=== PATIENT | male | born 1970 | race Caucasian/White ===

== ENCOUNTER 2017-04-29 23:55 | Inpatient (IN) | payer SELFPAY ==
[~2017-04-29] VITALS: Ht 182.9 cm; Wt 66.5 kg
[~2017-04-29 23:55] MED LIST: VENL75 PO
[2017-04-29 23:57] VITALS: TEMP 98.5
[2017-04-30] VITALS (14 sets, daily range): BP systolic 124–177; BP diastolic 84–109; PULSE 71–142; RESP 15–18; TEMP 97.8–99; O2SAT 94–100
[2017-04-30] MEDS ORDERED: SODIUM CHLOR 0.9% 1000 ML INJ 1,000 ML IV ONE
[2017-04-30] MEDS ORDERED: THIAMINE INJ 100 MG in SODIUM CHLORIDE 0.9% INJ 100 ML IV ONE ×2
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
[2017-04-30 00:29] LABS: AUTOMATED NEUTROPHIL # 1.9 TH/MM3 (1.8-7.7); BASOPHIL # 0.1 TH/MM3 (0-0.2); BASOPHIL % 4.2 % (0.0-2.0); EOSINOPHIL % 0.4 % (0.0-4.0); HEMATOCRIT 40.3 % (39.0-51.0); LYMPH % 11.9 % (9.0-44.0); LYMPHOCYTE # 0.3 TH/MM3 (1.0-4.8); MEAN CELL VOLUME 94.5 FL (80.0-100.0); MEAN CORPUSCULAR HGB CONC 33.9 % (32.0-36.0); MONO % 14.4 % (0.0-8.0); NEUT % 69.1 % (16.0-70.0); PLATELET COUNT 80 TH/MM3 (150-450); RED BLOOD COUNT 4.26 MIL/MM3 (4.50-5.90); RED CELL DISTRIBUTION WIDTH 13.5 % (11.6-17.2); WHITE BLOOD COUNT 2.7 TH/MM3 (4.0-11.0)
[2017-04-30 00:34] LABS: HEMO FLAGS AUTO DIFF
[2017-04-30 00:59] LABS: BICARBONATE 22.3 MEQ/L (21.0-32.0)
[2017-04-30 01:29] LABS: PLATELET ESTIMATE SMEAR LOW (NORMAL); PLATELET MORPHOLOGY NORMAL (NORMAL); SCAN/DIFF AUTO DIFF CONFIRMED
[2017-04-30] MEDS ORDERED: LORazepam 2 MG/ML VIAL IV PUSH ONE ×2 (02:45)
[2017-04-30] MEDS ORDERED: NALOXONE HCL 0.4 MG/ML AMP IV PRN (03:30)
[2017-04-30] MEDS ORDERED: SODIUM CHLORIDE 0.9% FLUSH 10 ML FLUSH IV FLUSH PRN (03:30)
[2017-04-30] MEDS ORDERED: chlordiazePOXIDE 25 MG CAP PO ONE (03:45)
[2017-04-30] MEDS: SODIUM CHLORIDE 0.9% FLUSH 10 ML FLUSH IV FLUSH SCH ×2 (08:52→20:03)
[2017-04-30] MEDS: THIAMINE HCL 100 MG TAB PO SCH (08:52)
[2017-04-30] MEDS: LORazepam 2 MG/ML VIAL IV PUSH PRN ×2 (08:53→22:37)
[2017-04-30] MEDS ORDERED: RESP: ALBUTEROL 2.5 MG/IPRATROPIUM 0.5 MG NEB (SCH) NEB (09:00)
[2017-04-30] MEDS ORDERED: LISINOPRIL 10 MG TAB PO SCH (09:00)
[2017-04-30] MEDS ORDERED: RESP: ALBUTEROL 2.5 MG/IPRATROPIUM 0.5 MG NEB (PRN) NEB (09:00)
[2017-04-30] MEDS ORDERED: cloNIDine HCL 0.1 MG TAB PO PRN (09:00)
[2017-04-30] MEDS: REMOVE OLD PATCH T-DERMAL SCH (09:00)
[2017-04-30] MEDS ORDERED: LORazepam 2 MG TAB PO PRN (09:30)
[2017-04-30] MEDS ORDERED: LORazepam 2 MG/ML VIAL IV PUSH PRN ×2 (09:30)
[2017-04-30] MEDS ORDERED: FLUMAZENIL 0.5 MG/5 ML VIAL IV PUSH PRN (09:30)
[2017-04-30] MEDS: NICOTINE 21 MG/24 HR PATCH T-DERMAL SCH (09:31)
[2017-04-30] MEDS: MULTIVITAMIN TAB PO SCH (09:32)
--- NOTE | 2017-04-30 09:40 | HHI.HP ---
[facility] No Primary Care Physician Admission Diagnosis Alcohol withdrawal, mild to moderate Diagnoses: Chief Complaint: Tremors, alcohol withdrawal Travel History International Travel<30 Days: No Contact w/Intl Traveler <30 Da: No Traveled to Known Affected Are: No History of Present Illness Written by Donte Hernandez, acting as scribe for on 04/30/17 at 09:14. Patient is a 46-year-old male with primary medical history of EtOH abuse, HTN who came in to the hospital for evaluation of tremors "shakes." Pt. states he is having withdrawals that's where the tremor is coming. Reports last drink was April 28 and he usually drinks 16 beers per day. Patient reports shaking has improved because she he was given medications overnight. States that he had alcohol withdrawals before and also had seizure 2 that he remembered from alcohol withdrawals. Patient complains of shortness of breath which is now improved after being given oxygen on nasal cannula. Reports cough, nonproductive, not expectorating anything. Reports diarrhea 2 loose BMs since he was at the hospital. Reports chills. Denies fevers, nausea, vomiting, diarrhea. Denies chest pain, palpitations, headaches, dizziness. Denies dysuria, abdominal pain. Patient states he had a history of hypertension but is unable to afford medication to continue what he was prescribed before. Also reports doesn't have a PCP right now and that he cannot remember what blood pressure medication he was taken. Review of Systems Except as stated in HPI: all other systems reviewed are Neg Past Family Social History Past Medical History HTN EtOH abuse Seizures with EtOH withdrawal Past Surgical History No prior surgeries Reported Medications None Allergies: Coded Allergies: Ibuprofen (Verified Allergy, Severe, 04/30/17) Naprosyn (Verified Allergy, Severe, 04/30/17) Naproxen (Verified Allergy, Severe, 04/30/17) Penicillin (Verified Allergy, Severe, 04/30/17) Active Ordered Medications Current Medications Medications (Trade) Dose Ordered Sig/Hermila Route Start Time Stop Time Status Last Admin (NS Flush) 2 ml UNSCH PRN IV FLUSH 7/6/17 03:30 (NS Flush) 2 ml BID IV FLUSH 04/30/17 09:00 04/30/17 08:52 (Narcan Inj) 0.4 mg UNSCH PRN IV 04/30/17 03:30 (Ativan Inj) 1 mg Q2H PRN IV PUSH 04/30/17 03:30 04/30/17 08:53 (Vitamin B1) 100 mg DAILY PO 04/30/17 09:00 04/30/17 08:52 Family History Denies any family medical history Social History Reports alcohol use 16 beers per day Current day smoker 1 pack per day Denies illicit drug use Physical Exam Vital Signs Vital Signs Date Time Temp Pulse Resp B/P Pulse Ox O2 Delivery O2 Flow Rate FiO2 04/30/17 07:58 97.8 87 15 160/99 95 04/30/17 06:03 96 04/30/17 05:13 97.9 95 18 168/106 94 04/30/17 02:20 88 18 156/91 98 Room Air 04/30/17 00:01 109 18 177/109 98 Nasal Cannula 2 04/30/17 00:01 108 20 93 Room Air 04/30/17 00:01 108 04/29/17 23:57 98.5 Physical Exam GENERAL: This is a well-nourished, well-developed patient, in no apparent distress. SKIN: No rashes, ecchymoses or lesions. Warm and dry. HEAD: Atraumatic. Normocephalic. No temporal or scalp tenderness. EYES: Pupils equal round and reactive. Extraocular motions intact. No scleral icterus. No injection or drainage. ENT: Nose without bleeding. Throat without erythema. Uvula midline. Airway patent. Poor dentition. NECK: Trachea midline. No JVD or lymphadenopathy. Supple, nontender, no meningeal signs. CARDIOVASCULAR: Regular rate and rhythm without murmurs, gallops, or rubs. RESPIRATORY: Expiratory wheezing. GASTROINTESTINAL: Abdomen soft, non-tender, nondistended. Bowel sounds active 4 MUSCULOSKELETAL: Extremities without clubbing, cyanosis, or edema. No joint tenderness, effusion, or edema noted. Tremors noted bilateral upper extremity right greater than the left. NEUROLOGICAL: Awake and alert. No focal neuro deficit. Oriented to person, place. Motor and sensory grossly within normal limits. Normal speech. Laboratory Laboratory Tests Test 04/30/17 00:05 White Blood Count 2.7 Red Blood Count 4.26 Hemoglobin 13.6 Hematocrit 40.3 Mean Corpuscular Volume 94.5 Mean Corpuscular Hemoglobin 32.0 Mean Corpuscular Hemoglobin 33.9 Concent Red Cell Distribution Width 13.5 Platelet Count 80 Mean Platelet Volume 8.1 Neutrophils (%) (Auto) 69.1 Lymphocytes (%) (Auto) 11.9 Monocytes (%) (Auto) 14.4 Eosinophils (%) (Auto) 0.4 Basophils (%) (Auto) 4.2 Neutrophils # (Auto) 1.9 Lymphocytes # (Auto) 0.3 Monocytes # (Auto) 0.4 Eosinophils # (Auto) 0.0 Basophils # (Auto) 0.1 CBC Comment AUTO DIFF Differential Comment AUTO DIFF CONFIRMED Platelet Estimate LOW Platelet Morphology Comment NORMAL Sodium Level 138 Potassium Level 4.0 Chloride Level 101 Carbon Dioxide Level 22.3 Anion Gap 15 Blood Urea Nitrogen 8 Creatinine 0.64 Estimat Glomerular Filtration 135 Rate Random Glucose 152 Calcium Level 8.4 Ethyl Alcohol Level 17 Result Diagram: 04/30/17 0005 04/30/17 0005 Assessment and Plan Problem List: (1) Alcohol withdrawal ICD Code: F10.239 Status: Acute (2) HTN (hypertension) ICD Code: I10 Status: Chronic (3) Alcohol abuse ICD Code: F10.10 Status: Acute Assessment and Plan Patient is a 46-year-old male with primary medical history of EtOH abuse, HTN who came in to the hospital for evaluation of tremors "shakes." Alcohol abuse Alcohol withdrawals History of seizures from withdrawal - WA protocol, patient was given Librium and Ativan - Seizure precaution - Start thiamine, multivitamins - IV fluid for hydration, start by mouth diet - Counseled. Patient is not willing to quit states it is difficult when he is outside. - Repeat labs tomorrow CBC, CMP HTN, uncontrolled - Previously on HTN medications - BP elevated - We'll start lisinopril 10 mg daily - Clonidine when necessary - Consult case management for assistance with PCP follow-up, medication assistance Tobacco abuse Possible COPD - Patient is counseled. Hesitant to quit. - Nicotine patch 21mg - DuoNeb's when necessary Generalized weakness - PT to evaluate and treat DVT prop SCDs Code Status Full code Discussed Condition With Patient, nursing Problem Qualifiers (1) Alcohol withdrawal: Qualified Code: F10.230 - Alcohol withdrawal, uncomplicated (2) HTN (hypertension): Qualified Code: I10 - Essential hypertension Donte Motta Apr 30, 2017 09:40 Margarito Osorio MD Apr 30, 2017 09:45
[2017-04-30] MEDS: LORazepam 1 MG TAB PO PRN ×2 (14:06→18:31)
[2017-04-30] MEDS ORDERED: METOPROLOL TARTRATE 25 MG TAB PO ONE (23:30)
[2017-05-01] VITALS (12 sets, daily range): BP systolic 101–140; BP diastolic 60–91; PULSE 67–180; RESP 16–20; TEMP 97.3–98.4; O2SAT 94–100
[2017-05-01] MEDS: LORazepam 2 MG/ML VIAL IV PUSH PRN ×5 (01:11→15:00)
[2017-05-01] MEDS ORDERED: LORazepam 2 MG/ML VIAL IV PUSH ONE (02:30)
[2017-05-01] MEDS: SODIUM CHLOR 0.9% 1000 ML INJ 1,000 ML IV SCH ×3 (02:31→20:41)
[2017-05-01] MEDS ORDERED: chlordiazePOXIDE 25 MG CAP PO ONE ×2 (03:15)
[2017-05-01] MEDS ORDERED: RESP: IPRATROPIUM 0.5 MG/2.5 ML NEB NEB PRN (03:15)
[2017-05-01 03:41] LABS: AUTOMATED NEUTROPHIL # 2.5 TH/MM3 (1.8-7.7); BASOPHIL # 0.1 TH/MM3 (0-0.2); BASOPHIL % 1.1 % (0.0-2.0); EOSINOPHIL # 0.2 TH/MM3 (0-0.4); LYMPH % 23.8 % (9.0-44.0); LYMPHOCYTE # 1.2 TH/MM3 (1.0-4.8); MEAN CELL VOLUME 93.5 FL (80.0-100.0); MEAN CORPUSCULAR HEMOGLOBIN 31.3 PG (27.0-34.0); MEAN CORPUSCULAR HGB CONC 33.5 % (32.0-36.0); MONO % 21.3 % (0.0-8.0); NEUT % 50.8 % (16.0-70.0); PLATELET COUNT 96 TH/MM3 (150-450); RED BLOOD COUNT 4.93 MIL/MM3 (4.50-5.90); RED CELL DISTRIBUTION WIDTH 13.4 % (11.6-17.2)
[2017-05-01] MEDS: RESP: IPRATROPIUM 0.5 MG/2.5 ML NEB NEB SCH ×4 (03:44→20:09)
[2017-05-01 03:54] LABS: HEMO FLAGS AUTO DIFF
[2017-05-01 04:20] LABS: BICARBONATE 24.8 MEQ/L (21.0-32.0); POTASSIUM 3.2 MEQ/L (3.5-5.1)
[2017-05-01 04:38] LABS: PLATELET ESTIMATE SMEAR LOW (NORMAL); PLATELET MORPHOLOGY NORMAL (NORMAL); SCAN/DIFF AUTO DIFF CONFIRMED
[2017-05-01] MEDS ORDERED: SODIUM CHLOR 0.9% 1000 ML INJ 1,000 ML IV ONE (05:45)
[2017-05-01] MEDS ORDERED: IOHEXOL 350 MG/ML 10 ML VIAL (for RAD DIAG) IV ONE (06:01)
--- NOTE | 2017-05-01 06:17 | RADRPT ---
EXAM DATE/TIME: 05/01/2017 05:54 [facility] COMPARISON: No previous studies available for comparison. INDICATIONS : Shortness of breath and cough. Elevated d-dimer. IV CONTRAST: 65 cc Omnipaque 350 (iohexol) IV RADIATION DOSE: 8.03 CTDIvol (mGy) MEDICAL HISTORY : Chronic obstructive pulmonary disease. Emphysema. Hypertension.ETOH Abuse. SURGICAL HISTORY : None. ENCOUNTER: Initial ACUITY: 1 day PAIN SCALE: 0/10 LOCATION: Bilateral chest TECHNIQUE: Volumetric scanning of the chest was performed using a pulmonary embolism protocol MIP images were re constructed. Using automated exposure control and adjustment of the mA and/or kV according to patien t size, radiation dose was kept as low as reasonably achievable to obtain optimal diagnostic quality images. DICOM format image data is available electronically for review and comparison. FINDINGS: PULMONARY ARTERIES: No filling defects are seen in the pulmonary arteries through the segmental level. LUNGS: There is no consolidation or pneumothorax . No concerning pulmonary nodule is visualized. Biapical p leural-parenchymal scarring. PLEURAE: There is no pleural thickening or pleural effusion. MEDIASTINUM: There is good visualization of the great vessels of the middle mediastinum. No evidence of mediastin al or hilar adenopathy/mass. Ascending thoracic aorta is aneurysmal at 4.6 cm. Atherosclerotic calcif ication of the coronary arteries MUSCULOSKELETAL: Within normal limits for patient age. MISCELLANEOUS: The visualized upper abdominal organs demonstrate no acute abnormality. CONCLUSION: 1. No acute infiltrate or pulmonary embolus to explain current clinical symptoms. Biapical pleural-pa renchymal scarring. 2. Ascending thoracic aortic aneurysm measuring 4.6 cm in diameter. Donald Hnuter MD on May 01, 2017 at 6:12 Board Certified Radiologist. This report was verified electronically.
[2017-05-01] MEDS ORDERED: POTASSIUM CHLORIDE 20 MEQ CONTROLLED RELEASE TAB PO ONE (08:30)
--- NOTE | 2017-05-01 08:38 | HHI.PR ---
Subjective Remarks Follow up for alcohol withdrawal. RN reports patient in severe withdrawal overnight with tremor, tachycardia, diaphoretic, and visual hallucinations. The patient's heart rate went up to 140s to 180s on telemetry with atrial fibrillation. The patient required multiple doses of IV ativan. He is now drowsy but arousable, oriented to person, place, and time. He does not recall any hallucinations. He denies any chest pain, palpitations, or shortness of breath however does admit to feeling weak and very "shaky". The patient is homeless, [facility]. He reports drinking 12 to 16 beers a day for many years. Objective Vitals Vital Signs Date Time Temp Pulse Resp B/P Pulse Ox O2 Delivery O2 Flow Rate FiO2 05/01/17 08:18 98.4 91 16 101/60 100 05/01/17 04:05 119 05/01/17 03:34 97.9 129 18 105/75 100 05/01/17 01:55 98.2 180 20 140/89 100 05/01/17 01:14 98.1 137 19 117/69 100 04/30/17 23:55 121 04/30/17 22:53 98.4 135 18 124/84 100 04/30/17 22:35 142 04/30/17 22:29 130 18 138/88 97 04/30/17 20:05 96 04/30/17 19:37 98.3 105 18 143/88 97 04/30/17 16:05 99.0 88 15 137/95 97 04/30/17 11:53 97.9 86 16 140/90 96 I/O 04/30/17 04/30/17 04/30/17 05/01/17 05/01/17 05/01/17 07:00 15:00 23:00 07:00 15:00 23:00 Intake Total 480 ml Balance 480 ml Intake Oral 480 ml # Voids 2 Result Diagram: 05/01/17 0330 05/01/17 [address] Angiography 05/01/17 0000 Signed Impressions: Service Date/Time: Monday, May 01, 2017 05:54 - CONCLUSION: 1. No acute infiltrate or pulmonary embolus to explain current clinical symptoms. Biapical pleural-parenchymal scarring. 2. Ascending thoracic aortic aneurysm measuring 4.6 cm in diameter. Donald Hunter MD Objective Remarks GENERAL: Well-nourished, well-developed unkempt appearing middle aged male patient in NAD. SKIN: Warm and dry. No rash. HEENT: Normocephalic. Atraumatic. Pupils equal and round. Mucous membranes slightly dry. NECK: Supple. Trachea midline. CARDIOVASCULAR: Irregular rate and rhythm. S1, S2 noted. No murmur appreciated. RESPIRATORY: No accessory muscle use. Clear to auscultation. Breath sounds equal bilaterally. GASTROINTESTINAL: Abdomen soft, non-tender, nondistended. Normoactive bowel sounds x4. MUSCULOSKELETAL: No obvious deformities. Extremities without clubbing, cyanosis , or edema. NEUROLOGICAL: Awake and alert. No obvious cranial nerve deficits. Motor grossly within normal limits. Normal speech. Tremulous. PSYCHIATRIC: Appropriate mood and affect; insight and judgment normal. Medications and IVs Current Medications Medications (Trade) Dose Ordered Sig/Hermila Route Start Time Stop Time Status Last Admin (NS Flush) 2 ml UNSCH PRN IV FLUSH 04/30/17 03:30 (NS Flush) 2 ml BID IV FLUSH 04/30/17 09:00 04/30/17 20:03 (Narcan Inj) 0.4 mg UNSCH PRN IV 04/30/17 03:30 (Ativan Inj) 1 mg Q2H PRN IV PUSH 04/30/17 03:30 04/30/17 22:37 (Vitamin B1) 100 mg DAILY PO 04/30/17 09:00 04/30/17 08:52 (Habitrol 21 Mg Patch.24 Hr) 1 patch DAILY T-DERMAL 04/30/17 09:00 04/30/17 09:31 Miscellaneous Information 1 DAILY T-DERMAL 04/30/17 09:00 (Theragran) 1 tab DAILY PO 04/30/17 09:00 04/30/17 09:32 (Catapres) 0.1 mg Q6H PRN PO 04/30/17 09:00 (Prinivil) 10 mg DAILY PO 04/30/17 09:00 04/30/17 09:32 (Romazicon Inj) 0.2 mg Q1M PRN IV PUSH 04/30/17 09:30 (Ativan) 1 mg Q4H PRN PO 04/30/17 09:30 04/30/17 18:31 (Ativan Inj) 1 mg Q4H PRN IV PUSH 04/30/17 09:30 (Ativan) 2 mg Q2H PRN PO 04/30/17 09:30 (Ativan Inj) 2 mg Q2H PRN IV PUSH 04/30/17 09:30 05/01/17 04:54 (Ativan Inj) 2 mg Q1H PRN IV PUSH 04/30/17 09:30 Lorazepam 2 mg 2 mg Q15M PRN IV PUSH 04/30/17 09:30 (NS 1000 ml Inj) 1,000 ml @ 100 mls/hr Q10H IV 05/01/17 02:30 05/01/17 02:31 (Librium) 25 mg TID PO 05/01/17 09:00 (Folate) 1 mg DAILY PO 05/01/17 09:00 05/06/17 08:59 (KCl) 40 meq ONCE ONCE PO 05/01/17 08:30 05/01/17 08:31 A/P Problem List: (1) Alcohol withdrawal ICD Code: F10.239 Status: Acute (2) HTN (hypertension) ICD Code: I10 Status: Chronic (3) Alcohol abuse ICD Code: F10.10 Status: Acute Assessment and Plan 46-year-old male with history of alcohol abuse, HTN who came in to the hospital for evaluation of tremors and "shakes." Alcohol Abuse with Acute Alcohol Withdrawal: History of seizures from withdrawal in the past. Patient with tachycardia, hallucinations overnight requiring multiple doses of IV Ativan. High risk for DT. - WA protocol with Ativan prn. - continue on Librium 25mg tid - Seizure precautions - Start thiamine/folate/multivitamins - IV fluid for hydration - Counseled. Patient is not willing to quit, states it is difficult when he is outside the hospital. HTN, uncontrolled - Previously on antihypertensive medications - started on lisinopril 10 mg daily however will hold for now with low BP - Clonidine prn - Consult case management for assistance with PCP follow-up, medication assistance Ascending Thoracic Aortic Aneurysm: measuring 4.6cm. Seen on CT-PA. - started on beta theresa however caution with borderline hypotension - consult cardiothoracic surgery Atrial Fibrillation with RVR: HR increased to 140s-180s overnight, EKG shows atrial fibrillation with RVR, HR 140. Suspect secondary to acute alcohol withdrawal. - started on metoprolol 12.5mg bid for rate control however difficult to treat with low blood pressure - avoid anticoagulation as patient is alcoholic and certainly high risk for falls however will obtain cardiology evaluation - consult cardiology, discussed with Dr. Hurd, recommends beta theresa, no anticoagulation Tobacco abuse, suspect COPD, not in exacerbation - Patient is counseled. Hesitant to quit. - Nicotine patch 21mg - DuoNeb's prn Generalized weakness - PT to evaluate and treat DVT prop SCDs Discharge Planning Not yet ready for discharge. Pending further clinical improvement. Will admit to inpatient. Attending Statement The exam, history, and the medical decision-making described in the above note were completed with the assistance of the mid-level provider. I reviewed and agree with the findings presented. I attest that I had a [id number] encounter with the patient on the same day, and personally performed and documented my assessment and findings in the medical record. Patient is actively withdrawing requiring multiple doses of IV Ativan. High risk for DT. He reportedly had some aloe summations overnight. On exam, he is very tremulous. He is tachycardic. Admit to inpatient. Continue CIWA protocol. Given extra dose of metoprolol for tachycardia. Problem Qualifiers (1) Alcohol withdrawal: Qualified Code: F10.230 - Alcohol withdrawal, uncomplicated (2) HTN (hypertension): Qualified Code: I10 - Essential hypertension Mary Ellen Greenwood PA-C May 01, 2017 08:38 Ange Kunz MD May 01, 2017 15:39
[2017-05-01] MEDS: REMOVE OLD PATCH T-DERMAL SCH (09:00)
[2017-05-01] MEDS: SODIUM CHLORIDE 0.9% FLUSH 10 ML FLUSH IV FLUSH SCH ×3 (09:00→20:48)
[2017-05-01] MEDS ORDERED: METOPROLOL TARTRATE 25 MG TAB PO SCH (09:00)
[2017-05-01] MEDS ORDERED: PILL SPLITTER OTHER PRN (09:00)
[2017-05-01] MEDS: NICOTINE 21 MG/24 HR PATCH T-DERMAL SCH (10:08)
[2017-05-01] MEDS: MULTIVITAMIN TAB PO SCH (10:09)
[2017-05-01] MEDS: FOLIC ACID 1 MG TAB PO SCH (10:09)
[2017-05-01] MEDS: chlordiazePOXIDE 25 MG CAP PO SCH ×3 (10:09→17:35)
[2017-05-01] MEDS: THIAMINE HCL 100 MG TAB PO SCH (10:09)
--- NOTE | 2017-05-01 13:47 | EKG ---
Date Performed: 05/01/2017 Time Performed: 02:21:15 PTAGE: 46 years EKG: ATRIAL FIBRILLATION WITH RAPID VENTRICULAR RESPONSE MODERATE ST DEPRESSION ABNORMAL ECG INT ERPRETATION BASED ON A DEFAULT AGE OF 40 YEARS PREVIOUS TRACING 01/01/2010 18.53.02 Compared to the prior study, atrial fibrillation wi th rapid response is now present. ST-changes are also new. DOCTOR: Vincent Barnes Interpretating Date/Time 05/01/2017 13:47:07
[2017-05-01] MEDS ORDERED: METOPROLOL TARTRATE 25 MG TAB PO ONE (14:00)
--- NOTE | 2017-05-01 17:09 | MB ---
cc: JAH ZAVALA DO DATE OF CONSULTATION May 01, 2017 REASON FOR CONSULTATION Atrial fibrillation. HISTORY OF PRESENT ILLNESS Mikey Johnson is a 46-year-old male who presents to [facility] due to evaluation for tremors. He states that he normally drinks around 16 beers per day but has not had anything to drink since April 28. He states that he has been going through withdrawal and that is where the tremors are coming from. He reported shaking has improved because he has been given Ativan. He has a history of alcohol withdrawal before and has two previous seizures that he remembered from alcohol withdrawal. The patient states he has a history of hypertension but is unable to afford medication to continue what he has been prescribed on in the hospital before. He is homeless and lives in the [facility] and home off [facility]. PAST MEDICAL HISTORY 1. Hypertension. 2. Alcohol abuse. 3. Seizures with alcohol withdrawal. PAST SURGICAL HISTORY Denies. ALLERGIES 1. IBUPROFEN. 2. NAPROSYN. 3. NAPROXEN. 4. PENICILLIN. MEDICATIONS Denies. FAMILY HISTORY Denies premature coronary artery disease or sudden cardiac within the family. SOCIAL HISTORY The patient drinks about 16 beers per day. Smokes one-pack per day of cigarettes. Denies illicit drug abuse. REVIEW OF SYSTEMS 14-systems were reviewed including osteopathic, pertinent positives and negatives above otherwise negative. PHYSICAL EXAMINATION VITAL SIGNS: Temperature 97.7, heart rate 82, blood pressure 119/87, respirations 16, pulse ox 98% on room air. GENERAL: In general the patient appears disheveled. Alert, awake and oriented, in no acute distress. HEENT: Extraocular muscles intact. Mucous membranes moist. NECK: Supple. No JVD at 45 degrees. No carotid bruits heard bilaterally. Carotid upstroke is brisk in nature. HEART: Heart is irregularly irregular. Positive first and second heart sounds with no noted murmurs, gallops or rubs. PMI is nondisplaced. LUNGS: Clear to auscultation bilaterally. No wheezes, rales or rhonchi. ABDOMEN: Abdomen is soft, nontender, nondistended. No organomegaly noted. EXTREMITIES: Show no clubbing, cyanosis or edema. Femoral and distal pulses intact bilaterally. NEUROLOGICALLY: No focal deficits. SKIN: Warm, dry and intact. OSTEOPATHIC: No kyphoscoliosis, lordosis or paraspinal tender points. LABORATORY FINDINGS Hemoglobin 15.4, hematocrit 46.0, platelets 96. Potassium 3.2, BUN 12, creatinine 0.58. CARDIOLOGY STUDIES Electrocardiogram (May 01, 2017 at 02:21) atrial fibrillation with rapid ventricular response. Nonspecific ST-T wave changes. IMPRESSION 1. Atrial fibrillation with uncontrolled response, most likely due to alcohol abuse as well as acute alcohol withdrawal. 2. Acute alcohol withdrawal. 3. Hypertension. 4. Ascending aortic thoracic aneurysm (4.6 cm on CTA). 5. Tobacco abuse. RECOMMENDATIONS 1. Mr. Johnson seemed to have presented with alcohol withdrawal and in DTs. 2. His atrial fibrillation is most likely provoked by this. 3. Will continue him on beta theresa therapy and increase as necessary as he has borderline blood pressure disease. 4. His alcohol withdrawal will be treated by the primary team. 5. Would check a 2-D echo to look at his overall left ventricular function, cardiac structure and possible valvulopathies. 6. As far as anticoagulation goes due to the patient's thrombocytopenia, as well as history of alcohol abuse, my concern would be with overall his ability to take the medication and to avoid falls. Would not anticoagulate other than with aspirin 81 milligrams at this time. If at any time he stops alcohol abuse, consideration could be made for anticoagulation. Thank you for allowing me to see Mikey Johnson. If there are any questions please do not hesitate to call. Jah Zavala DO VGP/EO /3:59 PM /4:55 PM
[2017-05-01] MEDS: METOPROLOL TARTRATE 25 MG TAB PO SCH (20:40)
[2017-05-02] VITALS (7 sets, daily range): BP systolic 108–136; BP diastolic 70–93; PULSE 78–90; RESP 16–20; TEMP 97.4–97.8; O2SAT 96–99
[2017-05-02] MEDS: LORazepam 2 MG/ML VIAL IV PUSH PRN ×3 (03:01→13:41)
[2017-05-02] MEDS: RESP: IPRATROPIUM 0.5 MG/2.5 ML NEB NEB SCH ×4 (03:35→21:12)
[2017-05-02 08:11] LABS: BICARBONATE 25.7 MEQ/L (21.0-32.0); MAGNESIUM 1.3 MG/DL (1.5-2.5); POTASSIUM 3.6 MEQ/L (3.5-5.1)
[2017-05-02] MEDS: SODIUM CHLOR 0.9% 1000 ML INJ 1,000 ML IV SCH ×2 (08:30→17:50)
[2017-05-02] MEDS: REMOVE OLD PATCH T-DERMAL SCH (09:00)
[2017-05-02] MEDS: SODIUM CHLORIDE 0.9% FLUSH 10 ML FLUSH IV FLUSH SCH ×2 (09:00→20:34)
[2017-05-02] MEDS: MAGNESIUM SULFATE 1 GM PREMIX 100 ML IV SCH ×2 (09:54→11:48)
[2017-05-02] MEDS: METOPROLOL TARTRATE 25 MG TAB PO SCH ×2 (09:55→20:35)
[2017-05-02] MEDS: chlordiazePOXIDE 25 MG CAP PO SCH ×3 (09:55→17:48)
[2017-05-02] MEDS: MULTIVITAMIN TAB PO SCH (09:55)
[2017-05-02] MEDS: FOLIC ACID 1 MG TAB PO SCH (09:56)
[2017-05-02] MEDS: THIAMINE HCL 100 MG TAB PO SCH (09:56)
[2017-05-02] MEDS: NICOTINE 21 MG/24 HR PATCH T-DERMAL SCH (09:57)
--- NOTE | 2017-05-02 12:28 | HHI.PR ---
Subjective Remarks Patient is still very tremulous and withdrawing. He denies hallucinations. Advised to cooperate and shower. Objective Vitals Vital Signs Date Time Temp Pulse Resp B/P Pulse Ox O2 Delivery O2 Flow Rate FiO2 05/02/17 08:05 85 05/02/17 08:00 97.7 86 20 122/86 97 05/02/17 05:02 97.7 90 16 136/93 99 05/01/17 23:55 98.0 91 16 130/91 100 05/01/17 20:28 97.3 85 16 123/63 99 05/01/17 20:11 131 05/01/17 16:20 97.6 67 18 125/71 94 I/O 05/01/17 05/01/17 05/01/17 05/02/17 05/02/17 05/02/17 07:00 15:00 23:00 07:00 15:00 23:00 Intake Total 1660 ml 480 ml 0 ml Output Total 400 ml 200 ml Balance 1660 ml 80 ml -200 ml Intake Oral 960 ml 480 ml 0 ml IV Total 700 ml Output Urine Total 400 ml 200 ml # Voids 3 # Bowel Movements 1 0 0 Result Diagram: 05/01/17 0330 05/02/[address] Angiography 05/01/17 0000 Signed Impressions: Service Date/Time: Monday, May 01, 2017 05:54 - CONCLUSION: 1. No acute infiltrate or pulmonary embolus to explain current clinical symptoms. Biapical pleural-parenchymal scarring. 2. Ascending thoracic aortic aneurysm measuring 4.6 cm in diameter. Donald Hunter MD Objective Remarks GENERAL: Patient appearing much older than stated age CARDIOVASCULAR: Normal rate and regular rhythm without murmurs, gallops, or rubs. RESPIRATORY: Good respiratory efforts. Breath sounds equal and clear to auscultation bilaterally. GASTROINTESTINAL: Abdomen soft, non-tender, non-distended. Normal active bowel sounds MUSCULOSKELETAL: Extremities without cyanosis, or edema. NEURO: Tremulous. Moves all ext x4 PSYCH: Anxious. A/P Problem List: (1) Alcohol withdrawal ICD Code: F10.239 Status: Acute (2) HTN (hypertension) ICD Code: I10 Status: Chronic (3) Alcohol abuse ICD Code: F10.10 Status: Acute Assessment and Plan 46-year-old male with history of alcohol abuse, HTN who came in to the hospital for evaluation of tremors and "shakes." Alcohol Abuse with Acute Alcohol Withdrawal: History of seizures from withdrawal in the past. Patient with tachycardia, hallucinations requiring multiple doses of IV Ativan. High risk for DT. - CIWA protocol with Ativan prn. - continue on Librium 25mg tid - Seizure precautions - Start thiamine/folate/multivitamins - IV fluid for hydration - Counseled. Patient is not willing to quit, states it is difficult when he is outside the hospital. HTN, uncontrolled on admission. - Continue metoprolol - Clonidine prn - Consult case management for assistance with PCP follow-up, medication assistance Ascending Thoracic Aortic Aneurysm: measuring 4.6cm. Seen on CT-PA. - started on beta theresa however caution with borderline hypotension -CT surgery consulted for recommendations. Atrial Fibrillation with RVR: Patient was started on metoprolol. Rate currently controlled on 25 mg twice a day. Appreciate cardiology following. Continue beta theresa no anticoagulation given his high risk of falls secondary to chronic and persistent alcohol dependence. Tobacco abuse, suspect COPD, not in exacerbation - Patient is counseled. Hesitant to quit. - Nicotine patch 21mg - DuoNeb's prn Generalized weakness - PT to evaluate and treat DVT prop SCDs Problem Qualifiers (1) Alcohol withdrawal: Qualified Code: F10.230 - Alcohol withdrawal, uncomplicated (2) HTN (hypertension): Qualified Code: I10 - Essential hypertension Ange Kunz MD May 02, 2017 12:28
--- NOTE | 2017-05-02 13:32 | PD.CARD.PN ---
Subjective Subjective Remarks No events over night Converted to NSR today Denies chest pain, shortness of breath Denies hallucinations, still with some "shakes" Objective Medications Current Medications Medications (Trade) Dose Ordered Sig/Hermila Route Start Time Stop Time Status Last Admin (NS Flush) 2 ml UNSCH PRN IV FLUSH 04/30/17 03:30 05/01/17 14:59 (NS Flush) 2 ml BID IV FLUSH 04/30/17 09:00 05/01/17 20:48 (Narcan Inj) 0.4 mg UNSCH PRN IV 04/30/17 03:30 (Ativan Inj) 1 mg Q2H PRN IV PUSH 04/30/17 03:30 04/30/17 22:37 (Vitamin B1) 100 mg DAILY PO 04/30/17 09:00 05/02/17 09:56 (Habitrol 21 Mg Patch.24 Hr) 1 patch DAILY T-DERMAL 04/30/17 09:00 05/02/17 09:57 Miscellaneous Information 1 DAILY T-DERMAL 04/30/17 09:00 05/02/17 09:00 (Theragran) 1 tab DAILY PO 04/30/17 09:00 05/02/17 09:55 (Catapres) 0.1 mg Q6H PRN PO 04/30/17 09:00 (Prinivil) 10 mg DAILY PO 04/30/17 09:00 Hold 04/30/17 09:32 (Romazicon Inj) 0.2 mg Q1M PRN IV PUSH 04/30/17 09:30 (Ativan) 1 mg Q4H PRN PO 04/30/17 09:30 04/30/17 18:31 (Ativan Inj) 1 mg Q4H PRN IV PUSH 04/30/17 09:30 05/02/17 09:54 (Ativan) 2 mg Q2H PRN PO 04/30/17 09:30 (Ativan Inj) 2 mg Q2H PRN IV PUSH 04/30/17 09:30 05/01/17 10:19 (Ativan Inj) 2 mg Q1H PRN IV PUSH 04/30/17 09:30 Lorazepam 2 mg 2 mg Q15M PRN IV PUSH 04/30/17 09:30 (NS 1000 ml Inj) 1,000 ml @ 100 mls/hr Q10H IV 05/01/17 02:30 05/01/17 20:41 (Librium) 25 mg TID PO 05/01/17 09:00 05/02/17 09:55 (Folate) 1 mg DAILY PO 05/01/17 09:00 05/06/17 08:59 05/02/17 09:56 (Pill Splitter) 1 ea UNSCH PRN OTHER 05/01/17 09:00 (Lopressor) 25 mg Q12HR PO 05/01/17 21:00 05/02/17 09:55 Vital Signs / I&O Vital Signs Date Time Temp Pulse Resp B/P Pulse Ox O2 Delivery O2 Flow Rate FiO2 05/02/17 08:05 85 05/02/17 08:00 97.7 86 20 122/86 97 05/02/17 05:02 97.7 90 16 136/93 99 05/01/17 23:55 98.0 91 16 130/91 100 05/01/17 20:28 97.3 85 16 123/63 99 05/01/17 20:11 131 05/01/17 16:20 97.6 67 18 125/71 94 I/O 05/01/17 05/01/17 05/01/17 05/02/17 05/02/17 05/02/17 07:00 15:00 23:00 07:00 15:00 23:00 Intake Total 1660 ml 480 ml 0 ml Output Total 400 ml 200 ml Balance 1660 ml 80 ml -200 ml Intake Oral 960 ml 480 ml 0 ml IV Total 700 ml Output Urine Total 400 ml 200 ml # Voids 3 # Bowel Movements 1 0 0 Physical Exam GENERAL: NAD, AAO, disheveled SKIN: Warm and dry. HEAD: Atraumatic. Normocephalic. EYES: Pupils equal and round. No scleral icterus. No injection or drainage. ENT: No nasal bleeding or discharge. Mucous membranes pink and moist. NECK: Trachea midline. No JVD. CARDIOVASCULAR: Regular rate and rhythm. No murmurs noted RESPIRATORY: No accessory muscle use. Clear to auscultation. Breath sounds equal bilaterally. GASTROINTESTINAL: Abdomen soft, non-tender, nondistended. Hepatic and splenic margins not palpable. MUSCULOSKELETAL: Extremities without clubbing, cyanosis, or edema. No obvious deformities. NEUROLOGICAL: Awake and alert. No obvious cranial nerve deficits. Motor grossly within normal limits. Five out of 5 muscle strength in the arms and legs. Normal speech. PSYCHIATRIC: Appropriate mood and affect; insight and judgment normal. Laboratory Laboratory Tests Test 05/02/17 06:27 Sodium Level 140 MEQ/L Potassium Level 3.6 MEQ/L Chloride Level 108 MEQ/L Carbon Dioxide Level 25.7 MEQ/L Anion Gap 6 MEQ/L Blood Urea Nitrogen 8 MG/DL Creatinine 0.47 MG/DL Estimat Glomerular Filtration 192 ML/MIN Rate Random Glucose 82 MG/DL Calcium Level 8.7 MG/DL Magnesium Level 1.3 MG/DL Assessment and Plan Problem List: (1) Alcohol dependence (2) Alcohol withdrawal (3) New onset atrial fibrillation (4) HTN (hypertension) (5) Thoracic aortic aneurysm Assessment and Plan 1) Excessive alcohol use/abuse, going through withdrawal 2) New onset Atrial Fibrillation, most likely secondary to alcohol withdrawal CHADSVASc = 1, would con't on ASA 81mg daily Would not plan on anti-coagulation due to thrombocytopenia, ETOH abuse with high risk of falls Con't with BB as heart rate well controlled 3) Thoracic aortic aneurysm measuring 4.6cm CT surgery consulted 4) 2D echo pending Problem Qualifiers (1) Alcohol withdrawal: Qualified Code: F10.230 - Alcohol withdrawal, uncomplicated (2) HTN (hypertension): Qualified Code: I10 - Essential hypertension Jah Hurd DO May 02, 2017 13:32
[2017-05-02] MEDS: LORazepam 1 MG TAB PO PRN (17:48)
[2017-05-03] VITALS (7 sets, daily range): BP systolic 105–144; BP diastolic 73–92; PULSE 74–83; RESP 18–20; TEMP 97.8–98.7; O2SAT 98–100
[2017-05-03] MEDS: RESP: IPRATROPIUM 0.5 MG/2.5 ML NEB NEB SCH ×4 (03:10→21:27)
[2017-05-03] MEDS: SODIUM CHLOR 0.9% 1000 ML INJ 1,000 ML IV SCH ×2 (04:30→11:36)
[2017-05-03] MEDS: METOPROLOL TARTRATE 25 MG TAB PO SCH ×2 (08:38→20:33)
[2017-05-03] MEDS: SODIUM CHLORIDE 0.9% FLUSH 10 ML FLUSH IV FLUSH SCH ×2 (08:38→20:35)
[2017-05-03] MEDS: NICOTINE 21 MG/24 HR PATCH T-DERMAL SCH (08:38)
[2017-05-03] MEDS: THIAMINE HCL 100 MG TAB PO SCH (08:38)
[2017-05-03] MEDS: MULTIVITAMIN TAB PO SCH (08:38)
[2017-05-03] MEDS: chlordiazePOXIDE 25 MG CAP PO SCH ×2 (08:38→11:35)
[2017-05-03] MEDS: FOLIC ACID 1 MG TAB PO SCH (08:38)
[2017-05-03] MEDS: REMOVE OLD PATCH T-DERMAL SCH (08:40)
--- NOTE | 2017-05-03 12:07 | PD.CARD.PN ---
Subjective Subjective Remarks No events noted, feels still slightly shaky Heart rates controlled Objective Medications Current Medications Medications (Trade) Dose Ordered Sig/Hermila Route Start Time Stop Time Status Last Admin (NS Flush) 2 ml UNSCH PRN IV FLUSH 04/30/17 03:30 05/01/17 14:59 (NS Flush) 2 ml BID IV FLUSH 04/30/17 09:00 05/03/17 08:38 (Narcan Inj) 0.4 mg UNSCH PRN IV 04/30/17 03:30 (Ativan Inj) 1 mg Q2H PRN IV PUSH 04/30/17 03:30 04/30/17 22:37 (Vitamin B1) 100 mg DAILY PO 04/30/17 09:00 05/03/17 08:38 (Habitrol 21 Mg Patch.24 Hr) 1 patch DAILY T-DERMAL 04/30/17 09:00 05/03/17 08:38 Miscellaneous Information 1 DAILY T-DERMAL 04/30/17 09:00 05/03/17 08:40 (Theragran) 1 tab DAILY PO 04/30/17 09:00 05/03/17 08:38 (Catapres) 0.1 mg Q6H PRN PO 04/30/17 09:00 (Prinivil) 10 mg DAILY PO 04/30/17 09:00 Hold 04/30/17 09:32 (Romazicon Inj) 0.2 mg Q1M PRN IV PUSH 04/30/17 09:30 (Ativan) 1 mg Q4H PRN PO 04/30/17 09:30 05/02/17 17:48 (Ativan Inj) 1 mg Q4H PRN IV PUSH 04/30/17 09:30 05/02/17 13:41 (Ativan) 2 mg Q2H PRN PO 04/30/17 09:30 (Ativan Inj) 2 mg Q2H PRN IV PUSH 04/30/17 09:30 05/01/17 10:19 (Ativan Inj) 2 mg Q1H PRN IV PUSH 04/30/17 09:30 Lorazepam 2 mg 2 mg Q15M PRN IV PUSH 04/30/17 09:30 (NS 1000 ml Inj) 1,000 ml @ 100 mls/hr Q10H IV 05/01/17 02:30 05/03/17 11:36 (Librium) 25 mg TID PO 05/01/17 09:00 05/03/17 11:35 (Folate) 1 mg DAILY PO 05/01/17 09:00 05/06/17 08:59 05/03/17 08:38 (Pill Splitter) 1 ea UNSCH PRN OTHER 05/01/17 09:00 (Lopressor) 25 mg Q12HR PO 05/01/17 21:00 05/03/17 08:38 Vital Signs / I&O Vital Signs Date Time Temp Pulse Resp B/P Pulse Ox O2 Delivery O2 Flow Rate FiO2 05/03/17 08:30 79 05/03/17 08:00 98.0 83 20 144/92 100 05/03/17 04:00 97.8 82 18 137/78 98 05/03/17 00:00 97.8 81 18 124/76 98 05/02/17 20:15 82 05/02/17 20:00 97.8 88 18 110/70 98 05/02/17 16:00 97.7 81 20 108/74 96 I/O 05/02/17 05/02/17 05/02/17 05/03/17 05/03/17 05/03/17 07:00 15:00 23:00 07:00 15:00 23:00 Intake Total 0 ml 720 ml 240 ml 120 ml Output Total 200 ml 550 ml 1600 ml 900 ml 450 ml Balance -200 ml 170 ml -1360 ml -780 ml -450 ml Intake Oral 0 ml 720 ml 240 ml 120 ml Output Urine Total 200 ml 550 ml 1600 ml 900 ml 450 ml # Bowel Movements 0 Physical Exam GENERAL: NAD, AAO, disheveled SKIN: Warm and dry. HEAD: Atraumatic. Normocephalic. EYES: Pupils equal and round. No scleral icterus. No injection or drainage. ENT: No nasal bleeding or discharge. Mucous membranes pink and moist. NECK: Trachea midline. No JVD. CARDIOVASCULAR: Regular rate and rhythm. No murmurs noted RESPIRATORY: No accessory muscle use. Clear to auscultation. Breath sounds equal bilaterally. GASTROINTESTINAL: Abdomen soft, non-tender, nondistended. Hepatic and splenic margins not palpable. MUSCULOSKELETAL: Extremities without clubbing, cyanosis, or edema. No obvious deformities. NEUROLOGICAL: Awake and alert. No obvious cranial nerve deficits. Motor grossly within normal limits. Five out of 5 muscle strength in the arms and legs. Normal speech. PSYCHIATRIC: Appropriate mood and affect; insight and judgment normal. Assessment and Plan Problem List: (1) Alcohol dependence (2) Alcohol withdrawal (3) New onset atrial fibrillation (4) HTN (hypertension) (5) Thoracic aortic aneurysm Assessment and Plan 1) Excessive alcohol use/abuse, going through withdrawal 2) New onset Atrial Fibrillation, most likely secondary to alcohol withdrawal CHADSVASc = 1, would con't on ASA 81mg daily Would not plan on anti-coagulation due to thrombocytopenia, ETOH abuse with high risk of falls Con't with BB as heart rate well controlled 3) Thoracic aortic aneurysm measuring 4.6cm CT surgery consulted 4) 2D echo pending 5) After echo, no further cardiovascular work up... needs to stop ETOH abuse overall Problem Qualifiers (1) Alcohol withdrawal: Qualified Code: F10.230 - Alcohol withdrawal, uncomplicated (2) HTN (hypertension): Qualified Code: I10 - Essential hypertension Jah Hurd DO May 03, 2017 12:07
--- NOTE | 2017-05-03 14:49 | HHI.PR ---
Subjective Remarks Patient reports he is still very shaky and withdrawing. No hallucinations. No chest pain or shortness of breath. Has been sleeping a lot. Objective Vitals Vital Signs Date Time Temp Pulse Resp B/P Pulse Ox O2 Delivery O2 Flow Rate FiO2 05/03/17 12:00 98.6 74 20 130/73 100 05/03/17 08:30 79 05/03/17 08:00 98.0 83 20 144/92 100 05/03/17 04:00 97.8 82 18 137/78 98 05/03/17 00:00 97.8 81 18 124/76 98 05/02/17 20:15 82 05/02/17 20:00 97.8 88 18 110/70 98 05/02/17 16:00 97.7 81 20 108/74 96 I/O 05/02/17 05/02/17 05/02/17 05/03/17 05/03/17 05/03/17 07:00 15:00 23:00 07:00 15:00 23:00 Intake Total 0 ml 720 ml 240 ml 120 ml 720 ml Output Total 200 ml 550 ml 1600 ml 900 ml 851 ml Balance -200 ml 170 ml -1360 ml -780 ml -131 ml Intake Oral 0 ml 720 ml 240 ml 120 ml 720 ml Output Urine Total 200 ml 550 ml 1600 ml 900 ml 850 ml Stool Total 1 ml # Voids 5 # Bowel Movements 0 1 Result Diagram: 05/01/17 0330 05/02/17 0627 Objective Remarks GENERAL: Patient appearing much older than stated age CARDIOVASCULAR: Normal rate and regular rhythm without murmurs, gallops, or rubs. RESPIRATORY: Good respiratory efforts. Breath sounds equal and clear to auscultation bilaterally. GASTROINTESTINAL: Abdomen soft, non-tender, non-distended. Normal active bowel sounds MUSCULOSKELETAL: Extremities without cyanosis, or edema. NEURO: Tremulous. Moves all ext x4 PSYCH: Anxious. A/P Problem List: (1) Alcohol withdrawal ICD Code: F10.239 Status: Acute (2) HTN (hypertension) ICD Code: I10 Status: Chronic (3) Alcohol abuse ICD Code: F10.10 Status: Acute Assessment and Plan 46-year-old male with history of alcohol abuse, HTN who came in to the hospital for evaluation of tremors and "shakes." Alcohol Abuse with Acute Alcohol Withdrawal: History of seizures from withdrawal in the past. Patient with tachycardia, hallucinations requiring multiple doses of IV Ativan. High risk for DT. - CIWA protocol with Ativan prn. Did not require any extra Ativan overnight. - continue on Librium. Decrease dose to 10 mg 3 times a day. - Seizure precautions - Start thiamine/folate/multivitamins - IV fluid for hydration - Counseled. Patient is not willing to quit, states it is difficult when he is outside the hospital. HTN, uncontrolled on admission. - Continue metoprolol - Clonidine prn - case management for assistance with PCP follow-up, medication assistance Ascending Thoracic Aortic Aneurysm: measuring 4.6cm. Seen on CT-PA. - started on beta theresa however caution with borderline hypotension -CT surgery consulted for recommendations. Atrial Fibrillation with RVR: Patient was started on metoprolol. Rate currently controlled on 25 mg twice a day. Appreciate cardiology following. Continue beta theresa no anticoagulation given his high risk of falls secondary to chronic and persistent alcohol dependence. - 2d echo pending. Tobacco abuse, suspect COPD, not in exacerbation - Patient is counseled. Hesitant to quit. - Nicotine patch 21mg - DuoNeb's prn Generalized weakness - PT to evaluate and treat DVT prop SCDs Discharge Planning Can be DC after 2D echo and CT surgery evaluation. Problem Qualifiers (1) Alcohol withdrawal: Qualified Code: F10.230 - Alcohol withdrawal, uncomplicated (2) HTN (hypertension): Qualified Code: I10 - Essential hypertension Ange Kunz MD May 03, 2017 14:48
--- NOTE | 2017-05-03 15:56 | ECHRPT ---
Indication: Persistent atrial fibrillation CONCLUSIONS Normal left ventricular size and wall thickness. The left ventricular systolic function is normal wi th an estimated ejection fraction in the range of 60-65%. Left ventricular diastolic function parameters a re normal. There is mild tricuspid valve regurgitation. The estimated pulmonary arterial pressure is 31 mmHg. BP: 130 / 73 HR: 74 Rhythm: Sinus MEASUREMENTS (Male / Female) Normal Values Technical Quality:Good 2D ECHO LV Diastolic Diameter PLAX 4.3 cm 4.2 - 5.9 / 3.9 - 5.3 cm LV Systolic Diameter PLAX 3.0 cm IVS Diastolic Thickness 0.9 cm 0.6 - 1.0 / 0.6 - 0.9 cm LVPW Diastolic Thickness 0.9 cm 0.6 - 1.0 / 0.6 - 0.9 cm LV Relative Wall Thickness 0.4 LVOT Diameter 2.2 cm M-MODE Aortic Root Diameter MM 3.0 cm LA Systolic Diameter MM 2.8 cm LA Ao Ratio MM 0.9 AV Cusp Separation MM 2.3 cm DOPPLER AV Peak Velocity 102.0 cm/s AV Peak Gradient 4.2 mmHg LVOT Peak Velocity 91.8 cm/s LVOT Peak Gradient 3.4 mmHg AV Area Cont Eq pk 3.4 cm Mitral E Point Velocity 76.5 cm/s Mitral A Point Velocity 45.4 cm/s Mitral E to A Ratio 1.7 LV E' Lateral Velocity 7.9 cm/s Mitral E to LV E' Lateral Ratio 9.7 LV E' Septal Velocity 7.5 cm/s Mitral E to LV E' Septal Ratio 10.2 TR Peak Velocity 228.0 cm/s TR Peak Gradient 20.8 mmHg PV Peak Velocity 102.0 cm/s PV Peak Gradient 4.2 mmHg FINDINGS LEFT VENTRICLE Normal left ventricular size and wall thickness. The left ventricular systolic function is normal wi th an estimated ejection fraction in the range of 60-65%. Left ventricular diastolic function parameters a re normal. RIGHT VENTRICLE Normal right ventricular size and systolic function. LEFT ATRIUM The left atrial size is normal. RIGHT ATRIUM The right atrial size is normal. ATRIAL SEPTUM Normal atrial septal thickness without atrial level shunting by limited color doppler interrogation. AORTA The aortic root and proximal ascending aorta are normal in size on limited imaging. MITRAL VALVE Structurally normal mitral valve. No mitral valve stenosis or regurgitation. AORTIC VALVE Trileaflet aortic valve. No aortic valve stenosis or regurgitation. TRICUSPID VALVE There is mild tricuspid valve regurgitation. The estimated pulmonary arterial pressure is 31 mmHg. PULMONARY VALVE The pulmonary valve is not well visualized. VESSELS The inferior vena cava is normal in size. PERICARDIUM No pericardial effusion. Babak Kelly MD (Electronically Signed) Final Date:03 May 2017 15:55
[2017-05-04] VITALS (7 sets, daily range): BP systolic 110–138; BP diastolic 60–92; PULSE 67–84; RESP 18–20; TEMP 97.5–98.8; O2SAT 96–98
[2017-05-04] MEDS: RESP: IPRATROPIUM 0.5 MG/2.5 ML NEB NEB SCH ×3 (03:38→16:00)
--- NOTE | 2017-05-04 08:33 | MB ---
cc: MARIO SADLER MD DATE OF CONSULTATION 05/01/17 DATE OF 1970 HISTORY OF PRESENT ILLNESS A 46-year-old male presented to the emergency room for tremors and shakes, apparently he is homeless. He lives off [facility]. States he is having withdrawals. His last drink was April 28 and he normally drinks 16 beers per day. He stated he had alcohol withdrawal before and also alcoholic related seizures with withdrawal. He has also had some loose diarrhea and also been complaining for shortness of breath that he has had off and on for the past couple of years. Apparently, the patient has not received any kind of medical treatment or medical outpatient care. States he has high blood pressure but does not take any medication. Incidentally, they did a CTA of the chest which did not show evidence of any pulmonary emboli, however, incidentally they found an ascending thoracic aorta aneurysm at 4.6. The patient denies having any chest pain. He denies having any dizziness or lightheadedness other than his symptoms from his withdrawals. PAST MEDICAL HISTORY His past medical history, hypertension, alcohol abuse, seizure with EtOH withdrawal. No surgeries. ALLERGIES No known allergies. MEDICATIONS Takes no home medication. FAMILY HISTORY Denies any family history. SOCIAL HISTORY He is homeless. He drinks approximately 16 beers per day. Smokes one-pack per day. REVIEW OF SYSTEMS As above in the HPI. Other 12 systems unremarkable. PHYSICAL EXAMINATION VITAL SIGNS: On exam, blood pressure 120/80, heart rate of 82, temperature max 97. GENERAL: Patient is awake, sleepy, no acute distress. No active tremors noted. HEENT: Head is normocephalic, atraumatic. Pupils equal and reactive. Oral mucosa pink, moist. SKIN: No rashes or lesions noted. NECK: Supple. No JVD. HEART: Heart sounds S1-S2 regular rate and rhythm. No rubs, murmurs, gallops. No bruits noted. No heaves. RESPIRATORY: Diminished in the bases, otherwise, clear to auscultation. ABDOMEN: Soft, nontender. No masses or organomegaly. EXTREMITIES: No cyanosis, clubbing or edema. NEUROLOGICALLY: He is A&O. Slightly groggy but follows all commands. Moves all extremities. Normal speech. LABORATORY FINDINGS Shows hemoglobin 13, hematocrit of 40, white cell count 2.7, platelet count of 80, sodium 138, potassium 4.0, BUN of 8, creatinine 0.64. EtOH level of 17. IMPRESSION 1. A 46-year-old male with a history of EtOH abuse. Presented with alcohol withdrawal, history of prior seizures with alcohol withdrawal, currently on CIWA protocol, given Librium and Ativan, also Rally Pack. 2. Hypertension. They have added lisinopril. 3. Incidental finding of ascending thoracic aortic aneurysm measuring 4.6 cm in diameter. The patient is currently asymptomatic, unfortunately, has long history of noncompliance and currently undergoing alcohol withdrawal. Would recommend the patient have some evaluation with social service agency director for patient assistance, have follow up with primary care to have a repeat CT of the chest in approximately 1 year. No surgical intervention at this time. Dictated by CLAYTON Giron Mario ARELLANO /4:29 PM /8:37 AM MTDD
[2017-05-04] MEDS: FOLIC ACID 1 MG TAB PO SCH (08:42)
[2017-05-04] MEDS: REMOVE OLD PATCH T-DERMAL SCH (08:42)
[2017-05-04] MEDS: SODIUM CHLORIDE 0.9% FLUSH 10 ML FLUSH IV FLUSH SCH (08:42)
[2017-05-04] MEDS: MULTIVITAMIN TAB PO SCH (08:43)
[2017-05-04] MEDS: METOPROLOL TARTRATE 25 MG TAB PO SCH (08:43)
[2017-05-04] MEDS: THIAMINE HCL 100 MG TAB PO SCH (08:43)
[2017-05-04] MEDS: NICOTINE 21 MG/24 HR PATCH T-DERMAL SCH (08:44)
[2017-05-04] MEDS ORDERED: METO25TA3 PO (15:10)
[2017-05-04] MEDS ORDERED: VENTAER INH (15:10)
--- NOTE | 2017-05-04 15:11 | HHI.DCPOC ---
Discharge Care Plan Diagnosis: (1) New onset atrial fibrillation (2) Thoracic aortic aneurysm (3) Alcohol dependence (4) Alcohol withdrawal (5) COPD (chronic obstructive pulmonary disease) Goals to Promote Your Health * To prevent worsening of your condition and complications * To maintain your health at the optimal level Directions to Meet Your Goals Take your medications as prescribed Follow your dietary instruction Follow activity as directed Keep your appointments as scheduled Take your immunizations and boosters as scheduled If your symptoms worsen call your PCP, if no PCP go to Urgent Care Center or Emergency Room Smoking is Dangerous to Your Health. Avoid second hand smoke Call the 24-hour hour crisis hotline for domestic abuse at Frantz Brown DO May 04, 2017 15:11
--- NOTE | 2017-05-04 15:19 | HHI.DS ---
Discharge Summary Admission Date May 01, 2017 at 13:49 Discharge Date: May 04, 2017 Admitting Diagnosis Alcohol withdrawal, mild to moderate (1) Alcohol withdrawal ICD Code: F10.239 Diagnosis: Principal (2) HTN (hypertension) ICD Code: I10 (3) Alcohol abuse ICD Code: F10.10 (4) COPD (chronic obstructive pulmonary disease) ICD Code: J44.9 (5) New onset atrial fibrillation ICD Code: I48.91 Diagnosis: Principal (6) Thoracic aortic aneurysm ICD Code: I71.2 Procedures None Brief History - From Admission Written by Donte Hernandez, acting as scribe for on 04/30/17 at 09:14. Patient is a 46-year-old male with primary medical history of EtOH abuse, HTN who came in to the hospital for evaluation of tremors "shakes." Pt. states he is having withdrawals that's where the tremor is coming. Reports last drink was April 28 and he usually drinks 16 beers per day. Patient reports shaking has improved because she he was given medications overnight. States that he had alcohol withdrawals before and also had seizure 2 that he remembered from alcohol withdrawals. Patient complains of shortness of breath which is now improved after being given oxygen on nasal cannula. Reports cough, nonproductive, not expectorating anything. Reports diarrhea 2 loose BMs since he was at the hospital. Reports chills. Denies fevers, nausea, vomiting, diarrhea. Denies chest pain, palpitations, headaches, dizziness. Denies dysuria, abdominal pain. Patient states he had a history of hypertension but is unable to afford medication to continue what he was prescribed before. Also reports doesn't have a PCP right now and that he cannot remember what blood pressure medication he was taken. CBC/BMP: 05/01/17 0330 05/02/17 0627 Significant Findings Laboratory Tests Test 05/02/17 06:27 Chloride Level 108 MEQ/L (98-107) Creatinine 0.47 MG/DL (0.60-1.30) Magnesium Level 1.3 MG/DL (1.5-2.5) Imaging Last Impressions CT Angiography 05/01/17 0000 Signed Impressions: Service Date/Time: Monday, May 01, 2017 05:54 - CONCLUSION: 1. No acute infiltrate or pulmonary embolus to explain current clinical symptoms. Biapical pleural-parenchymal scarring. 2. Ascending thoracic aortic aneurysm measuring 4.6 cm in diameter. Donald Hunter MD PE at Discharge GENERAL: Resting comfortably CARDIOVASCULAR: Normal rate and regular rhythm without murmurs, gallops, or rubs. RESPIRATORY: Diffuse wheezing throughout lung rg. GASTROINTESTINAL: Abdomen soft, non-tender, non-distended. Normal active bowel sounds MUSCULOSKELETAL: Extremities without cyanosis, or edema. NEURO: No gross deficits. Moves all ext x4 PSYCH: Mood and affect appropriate. Pt update on day of discharge The patient was feeling well. He said he was no longer shaky. He said he will try to quit drinking alcohol. He said his breathing was baseline. Discussed with case management. Hospital Course Acute alcohol withdrawal History of seizures from withdrawal in the past. Patient with tachycardia, hallucinations requiring multiple doses of IV Ativan upon admission. Started on CIWA protocol with Ativan prn. He was continued on standing Librium which was weaned down to 10 mg 3 times a day. He was placed on seizure precautions. He received thiamine/folate/multivitamins and IV fluids. He received alcohol cessation instruction. HTN Improved on Lopressor. He will continue Lopressor as an outpt. Ascending Thoracic Aortic Aneurysm Measuring 4.6cm. Seen on CT scan. Started on beta theresa. CT surgery recommends repeat CT in one year. Atrial Fibrillation with RVR The patient was started on metoprolol. Rate currently controlled on 25 mg twice a day. Cardiology was consulted. He will continue beta theresa with no anticoagulation given his high risk of falls secondary to chronic and persistent alcohol dependence as well as thrombocytopenia. Echo with normal EF. Tobacco abuse/ COPD Patient was counseled. Nicotine patch 21mg ordered. He received DuoNeb's prn. He will be d/c on albuterol. Pt Condition on Discharge: Stable Discharge Disposition: Discharge Home Discharge Time: > 30 minutes Discharge Instructions DIET: Follow Instructions for: As Tolerated, No Restrictions Activities you can perform: Weight Bearing as Avtar Follow up Referrals: PCP Follow-up - [address] Ordoñez New Medications: Albuterol 18 GM Inh (Ventolin Hfa 18 GM Inh) 90 Mcg/Act Aer 2 PUFF INH Q4H PRN SHORTNESS OF BREATH #1 Ref 0 INHALER Metoprolol Tartrate (Metoprolol Tartrate) 25 Mg Tab 25 MG PO Q12HR A fib #60 TAB Frantz Brown DO May 04, 2017 15:19
[2017-05-04 17:33] LABS: BICARBONATE 24.3 MEQ/L (21.0-32.0); MAGNESIUM 1.6 MG/DL (1.5-2.5); POTASSIUM 4.6 MEQ/L (3.5-5.1)
--- NOTE | 2017-05-04 18:00 | PD.CARD.PN ---
Subjective Subjective Remarks Patient seen this morning, no complaints Not feeling shaky Objective Medications Current Medications Medications (Trade) Dose Ordered Sig/Hermila Route Start Time Stop Time Status Last Admin (NS Flush) 2 ml UNSCH PRN IV FLUSH 04/30/17 03:30 05/01/17 14:59 (NS Flush) 2 ml BID IV FLUSH 04/30/17 09:00 05/04/17 08:42 (Narcan Inj) 0.4 mg UNSCH PRN IV 04/30/17 03:30 (Ativan Inj) 1 mg Q2H PRN IV PUSH 04/30/17 03:30 04/30/17 22:37 (Vitamin B1) 100 mg DAILY PO 04/30/17 09:00 05/04/17 08:43 (Habitrol 21 Mg Patch.24 Hr) 1 patch DAILY T-DERMAL 04/30/17 09:00 05/04/17 08:44 Miscellaneous Information 1 DAILY T-DERMAL 04/30/17 09:00 05/04/17 08:42 (Theragran) 1 tab DAILY PO 04/30/17 09:00 05/04/17 08:43 (Catapres) 0.1 mg Q6H PRN PO 04/30/17 09:00 (Prinivil) 10 mg DAILY PO 04/30/17 09:00 Hold 04/30/17 09:32 (Romazicon Inj) 0.2 mg Q1M PRN IV PUSH 04/30/17 09:30 (Ativan) 1 mg Q4H PRN PO 04/30/17 09:30 05/02/17 17:48 (Ativan Inj) 1 mg Q4H PRN IV PUSH 04/30/17 09:30 05/02/17 13:41 (Ativan) 2 mg Q2H PRN PO 04/30/17 09:30 (Ativan Inj) 2 mg Q2H PRN IV PUSH 04/30/17 09:30 05/01/17 10:19 (Ativan Inj) 2 mg Q1H PRN IV PUSH 04/30/17 09:30 (Ativan Inj) 2 mg Q15M PRN IV PUSH 04/30/17 09:30 (Folate) 1 mg DAILY PO 05/01/17 09:00 05/06/17 08:59 05/04/17 08:42 (Pill Splitter) 1 ea UNSCH PRN OTHER 05/01/17 09:00 (Lopressor) 25 mg Q12HR PO 05/01/17 21:00 05/04/17 08:43 (Librium) 10 mg TID PO 05/03/17 18:00 05/04/17 17:07 Vital Signs / I&O Vital Signs Date Time Temp Pulse Resp B/P Pulse Ox O2 Delivery O2 Flow Rate FiO2 05/04/17 16:00 98.8 74 20 115/84 96 05/04/17 12:00 98.2 84 20 129/60 97 05/04/17 11:29 72 05/04/17 08:00 98.4 67 20 138/92 98 05/04/17 06:18 97.5 70 20 131/73 98 05/04/17 03:20 81 05/04/17 01:27 98.4 77 18 110/63 97 05/03/17 21:02 98.3 81 20 121/75 98 I/O 05/03/17 05/03/17 05/03/17 05/04/17 05/04/17 05/04/17 07:00 15:00 23:00 07:00 15:00 23:00 Intake Total 120 ml 720 ml 6 ml 720 ml Output Total 900 ml 851 ml 750 ml 1200 ml 450 ml Balance -780 ml -131 ml -750 ml -1194 ml 720 ml -450 ml Intake Oral 120 ml 720 ml 720 ml IV Total 6 ml Output Urine Total 900 ml 850 ml 750 ml 1200 ml 450 ml Stool Total 1 ml 0 ml # Voids 5 3 3 # Bowel Movements 1 Physical Exam GENERAL: NAD, AAO, disheveled SKIN: Warm and dry. HEAD: Atraumatic. Normocephalic. EYES: Pupils equal and round. No scleral icterus. No injection or drainage. ENT: No nasal bleeding or discharge. Mucous membranes pink and moist. NECK: Trachea midline. No JVD. CARDIOVASCULAR: Regular rate and rhythm. No murmurs noted RESPIRATORY: No accessory muscle use. Clear to auscultation. Breath sounds equal bilaterally. GASTROINTESTINAL: Abdomen soft, non-tender, nondistended. Hepatic and splenic margins not palpable. MUSCULOSKELETAL: Extremities without clubbing, cyanosis, or edema. No obvious deformities. NEUROLOGICAL: Awake and alert. No obvious cranial nerve deficits. Motor grossly within normal limits. Five out of 5 muscle strength in the arms and legs. Normal speech. PSYCHIATRIC: Appropriate mood and affect; insight and judgment normal. Laboratory Laboratory Tests Test 05/04/17 15:55 Sodium Level 138 MEQ/L Potassium Level 4.6 MEQ/L Chloride Level 105 MEQ/L Carbon Dioxide Level 24.3 MEQ/L Anion Gap 9 MEQ/L Blood Urea Nitrogen 9 MG/DL Creatinine 0.50 MG/DL Estimat Glomerular Filtration 179 ML/MIN Rate Random Glucose 79 MG/DL Calcium Level 9.3 MG/DL Magnesium Level 1.6 MG/DL Assessment and Plan Problem List: (1) Alcohol dependence (2) Alcohol withdrawal (3) New onset atrial fibrillation (4) HTN (hypertension) (5) Thoracic aortic aneurysm Assessment and Plan 1) Excessive alcohol use/abuse, going through withdrawal 2) New onset Atrial Fibrillation, most likely secondary to alcohol withdrawal CHADSVASc = 1, would con't on ASA 81mg daily Would not plan on anti-coagulation due to thrombocytopenia, ETOH abuse with high risk of falls Con't with BB as heart rate well controlled 3) Thoracic aortic aneurysm measuring 4.6cm CT surgery consulted 4) EF 60-65% 5) Needs to stop ETOH abuse... cardiovascularly stable for discharge Problem Qualifiers (1) Alcohol withdrawal: Qualified Code: F10.230 - Alcohol withdrawal, uncomplicated (2) HTN (hypertension): Qualified Code: I10 - Essential hypertension Jah Hurd DO May 04, 2017 18:00
== END 2017-05-04 18:10 | disposition home or self-care (01) | DRG 897 ==
LOC: NEPE 23:55 → NEDA 04-30 03:20 → NEPHCDU 04-30 04:37 → OBSVTOIN 05-01 13:49 → N04B 05-01 15:51
PROVIDERS: ADMIT Hospitalist; ATTEND Hospitalist
DX: F10.231 Alcohol dependence with withdrawal delirium (principal); I71.2 Thoracic aortic aneurysm, without rupture; I48.91 Unspecified atrial fibrillation; I10 Essential (primary) hypertension; F17.210 Nicotine dependence, cigarettes, uncomplicated; Z59.0 Homelessness; Z91.19 Patient's noncompliance with other medical treatment and regimen; J44.9 Chronic obstructive pulmonary disease, unspecified; Y90.0 Blood alcohol level of less than 20 mg/100 ml
CPT/HCPCS: 71275; 76937; 80048; 80307; 83735; 85025; 85379; 93005; 93306; 94640; 94664; 96365; 96366; 96375; G0378; G8987-GP; G8988-GP; J2060; J3411; J3475; J7030; J7644; Q9967

== ENCOUNTER 2017-06-21 22:14 | Emergency (ER) | payer OTHER ==
[~2017-06-21] VITALS: Ht 185.4 cm; Wt 75.0 kg
[~2017-06-21 22:14] MED LIST changes: +METO25TA3 PO; -VENL75 PO; +VENTAER INH
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
[2017-06-21 23:18] LABS: AUTOMATED NEUTROPHIL # 1.5 TH/MM3 (1.8-7.7); BASOPHIL # 0.1 TH/MM3 (0-0.2); EOSINOPHIL # 0.3 TH/MM3 (0-0.4); EOSINOPHIL % 6.9 % (0.0-4.0); HEMATOCRIT 39.4 % (39.0-51.0); LYMPH % 33.5 % (9.0-44.0); LYMPHOCYTE # 1.5 TH/MM3 (1.0-4.8); MEAN CELL VOLUME 95.6 FL (80.0-100.0); MEAN CORPUSCULAR HEMOGLOBIN 32.9 PG (27.0-34.0); MEAN CORPUSCULAR HGB CONC 34.4 % (32.0-36.0); MONO % 23.9 % (0.0-8.0); NEUT % 33.7 % (16.0-70.0); PLATELET COUNT 90 TH/MM3 (150-450); RED BLOOD COUNT 4.12 MIL/MM3 (4.50-5.90); RED CELL DISTRIBUTION WIDTH 12.4 % (11.6-17.2); WHITE BLOOD COUNT 4.5 TH/MM3 (4.0-11.0)
[2017-06-21 23:22] LABS: HEMO FLAGS AUTO DIFF
[2017-06-21 23:44] LABS: ALT (GPT) 78 U/L (12-78)
[2017-06-21 23:48] LABS: ALKALINE PHOSPHATASE 74 U/L (45-117); TOTAL BILIRUBIN ADULT 0.7 MG/DL (0.2-1.0)
[2017-06-21 23:49] LABS: ANION GAP 10 MEQ/L (5-15); AST (GOT) 100 U/L (15-37); BICARBONATE 27.5 MEQ/L (21.0-32.0); BLOOD UREA NITROGEN 4 MG/DL (7-18); CHLORIDE 101 MEQ/L (98-107); GLOMERULAR FILTRATION RATE 151 ML/MIN (>89); POTASSIUM 3.1 MEQ/L (3.5-5.1); SODIUM (NA) 138 MEQ/L (136-145)
[2017-06-21 23:50] LABS: ALCOHOL 352 MG/DL (0-5)
[2017-06-21 23:51] VITALS: BP 107/68; PULSE 82; RESP 20; TEMP 98.1; O2SAT 96
[2017-06-22 00:14] VITALS: BP 107/68; PULSE 82; RESP 20; TEMP 98.1; O2SAT 96
[2017-06-22] MEDS ORDERED: THIAMINE HCL 200 MG/2 ML VIAL IM ONE (00:30)
[2017-06-22] MEDS ORDERED: POTASSIUM CHLORIDE 20 MEQ CONTROLLED RELEASE TAB PO ONE (00:30)
[2017-06-22 00:45] LABS: SCAN/DIFF AUTO DIFF CONFIRMED
[2017-06-22 08:00] VITALS: BP 117/63; PULSE 76; RESP 20; O2SAT 98
--- NOTE | 2017-06-22 13:23 | PD ---
Physical Exam Date Seen by Provider: Jun 22, 2017 Time Seen by Provider: 13:22 Narrative Patient was seen by Dr. Pedraza and cleared for discharge. Data Data Last Documented VS Vital Signs Date Time Temp Pulse Resp B/P (MAP) Pulse Ox O2 Delivery O2 Flow Rate FiO2 06/22/17 08:00 76 20 117/63 (81) 98 Room Air 06/22/17 00:14 98.1 Orders Orders Complete Blood Count With Diff (06/21/17 23:01) Comprehensive Metabolic Panel (06/21/17 23:01) Psych Screen (06/21/17 23:01) Drug Screen, Random Urine (06/21/17 23:01) Alcohol (Ethanol) (06/21/17 23:01) Potassium Chloride (Kcl) (06/22/17 00:30) Thiamine Inj (Thiamine Inj) (06/22/17 00:30) Diet Regular Basic (06/22/17 Breakfast) Labs Laboratory Tests Test 06/21/17 23:05 06/21/17 23:09 White Blood Count 4.5 TH/MM3 Red Blood Count 4.12 MIL/MM3 Hemoglobin 13.6 GM/DL Hematocrit 39.4 % Mean Corpuscular Volume 95.6 FL Mean Corpuscular Hemoglobin 32.9 PG Mean Corpuscular Hemoglobin Concent 34.4 % Red Cell Distribution Width 12.4 % Platelet Count 90 TH/MM3 Mean Platelet Volume 7.9 FL Neutrophils (%) (Auto) 33.7 % Lymphocytes (%) (Auto) 33.5 % Monocytes (%) (Auto) 23.9 % Eosinophils (%) (Auto) 6.9 % Basophils (%) (Auto) 2.0 % Neutrophils # (Auto) 1.5 TH/MM3 Lymphocytes # (Auto) 1.5 TH/MM3 Monocytes # (Auto) 1.1 TH/MM3 Eosinophils # (Auto) 0.3 TH/MM3 Basophils # (Auto) 0.1 TH/MM3 CBC Comment AUTO DIFF Differential Comment AUTO DIFF CONFIRMED Blood Urea Nitrogen 4 MG/DL Creatinine 0.58 MG/DL Random Glucose 139 MG/DL Total Protein 7.2 GM/DL Albumin 3.8 GM/DL Calcium Level 8.7 MG/DL Alkaline Phosphatase 74 U/L Aspartate Amino Transf (AST/SGOT) 100 U/L Alanine Aminotransferase (ALT/SGPT) 78 U/L Total Bilirubin 0.7 MG/DL Sodium Level 138 MEQ/L Potassium Level 3.1 MEQ/L Chloride Level 101 MEQ/L Carbon Dioxide Level 27.5 MEQ/L Anion Gap 10 MEQ/L Estimat Glomerular Filtration Rate 151 ML/MIN Ethyl Alcohol Level 352 MG/DL Urine Opiates Screen NEG Urine Barbiturates Screen NEG Urine Amphetamines Screen NEG Urine Benzodiazepines Screen POS Urine Cocaine Screen NEG Urine Cannabinoids Screen NEG MDM Medical Record Reviewed: Yes Supervised Visit with JAYLA: No Narrative Course Patient seen by Dr. Pedraza and cleared for discharge. He tells me he is not suicidal or homicidal. I believe he was intoxicated and making threats. He tells me he does not want to harm himself or others. I have placed the discharge orders. Diagnosis Primary Impression: Alcohol abuse Additional Impression: Alcohol dependence Qualified Codes: F10.20 - Alcohol dependence, uncomplicated Referrals: [facility] Patient Instructions: General Instructions Additional Instruction: Follow up with your primary care doctor. Try to cut down your alcohol usage. Med/Other Pt SpecificInfo: No Change to Meds Disposition: 01 DISCHARGE HOME Condition: Stable Garima Reddy Jun 22, 2017 13:23
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
== END 2017-06-22 13:57 | disposition home or self-care (01) ==
LOC: NEPD 22:14
DX: F10.10 Alcohol abuse, uncomplicated (principal); F41.9 Anxiety disorder, unspecified; I10 Essential (primary) hypertension; R56.9 Unspecified convulsions; F17.200 Nicotine dependence, unspecified, uncomplicated; Z79.899 Other long term (current) drug therapy; Z88.6 Allergy status to analgesic agent; Z88.0 Allergy status to penicillin; Z86.73 Personal history of transient ischemic attack (TIA), and cerebral infarction without residual deficits
CPT/HCPCS: 80053; 80307; 85025; 96372; 99284; J3411